=== PATIENT | female | born 1960 | race Caucasian/White ===

== ENCOUNTER 2020-03-16 13:46 | Outpatient (CLI) | payer OTHER, SELFPAY ==
--- NOTE | ~2020-03-16 | CT_ITS ---
EXAMINATION: CT soft tissue neck w con DATE: 03/16/2020 15:01 INDICATION: Dysphagia. TECHNIQUE: Computed tomography (CT) of the neck was performed with 75 mL Omnipaque-350 intravenous co ntrast. Automated exposure control and iterative reconstruction technique were employed. The dose-luis alberto gth product was 570.68 mGy-cm. COMPARISON: None FINDINGS: There is mild emphysema. There are likely changes of ocular lens replacement surgeries. The re is a 4.3 cm nodule in right thyroid lobe with leftward deviation of the trachea. There is no plaqu e in the proximal internal carotid arteries. There are no pathologically enlarged lymph nodes. There is mild mucosal thickening in the ethmoid sin uses. The mastoid air cells are normal. There is mild cervical spondylosis. IMPRESSION: 1. Thyroid nodule. Ultrasound-guided fine-needle aspiration is recommended. Reviewed, dictated and finalized at location A.
[2020-03-16 14:48] LABS: Estimated Glomerular Filt Rate > 60
== END 2020-03-16 13:47 | disposition home or self-care (01) ==
PROVIDERS: PCP Family Medicine; Visit Provider Family Medicine
DX: E01.0 Iodine-deficiency related diffuse (endemic) goiter (principal); R13.10 Dysphagia, unspecified; R20.0 Anesthesia of skin
CPT/HCPCS: 36415; 70491; Q9967

== ENCOUNTER → 2020-07-16 10:26 | Outpatient (CLI) | payer OTHER, SELFPAY ==
--- NOTE | ~2020-07-16 | MM_ITS ---
EXAMINATION: MM screening [facility] w [place] HISTORY: Screening mammogram TECHNIQUE: Craniocaudal and mediolateral oblique 3-D tomosynthesis images were obtained and synthetic 2-D images were generated. CAD analysis was submitted and interpreted. COMPARISON: 06/27/2019 bilateral digital screening mammogram BREAST PARENCHYMAL COMPOSITION: FINDINGS: There is a circumscribed benign-appearing stable opacity in the outer mid right breast, lik loyd a benign intramammary lymph node. There is no evidence of suspicious mass, calcification, or arch itectural distortion to suggest malignancy in either breast. There has been no suspicious interval ch faraz. IMPRESSION: 1. No mammographic evidence of malignancy. 2. Recommend routine screening mammography in one year. BI-RADS Category 2: Benign finding(s). Reviewed, dictated and finalized at location A.
== END ==
PROVIDERS: PCP Nurse Practitioner Family; Visit Provider Nurse Practitioner Family
DX: Z12.31 Encounter for screening mammogram for malignant neoplasm of breast (principal)
CPT/HCPCS: 77063; 77067

== ENCOUNTER → 2020-09-28 13:03 | Outpatient (CLI) | payer OTHER, SELFPAY ==
--- NOTE | ~2020-09-28 | XR_ITS ---
EXAMINATION:XR_[id number]_CR, XR thoracic spine 2V DATE: 09/28/2020 13:38 INDICATION: Cervicalgia and dorsalgia with numbness and tingling in the fingers of the left hand radi ographs the left arm to the axilla. TECHNIQUE: 1. Standing AP, lateral, lateral swimmers and odontoid views of the cervical spine are provided. 2. Standing AP and lateral views of the thoracic spine were obtained. COMPARISON: None FINDINGS: Cervical spine: Alignment is normal. Odontoid is intact. Normal atlantoaxial interval. Vertebral body heights are no rmal. Mild disc height loss at C4-C5, C5-6 and C6-C7. Prevertebral soft tissues are normal. Thoracic spine: S-shaped scoliosis of the thoracic spine with 12 degrees levoscoliosis measured between C7 and T5 and 12 degrees dextro scoliosis between T5 and T9. Vertebral body heights are normal. Moderate disc heig ht loss at T8-T9 and mild disc height loss at the remaining levels from T5-T6 through T11-T12. Visual ized lungs are clear. Cardiomediastinal silhouette is normal. IMPRESSION: 1. Mild S-shaped thoracic scoliosis. 2. Mild cervical and thoracic spondylosis. Reviewed, dictated and finalized at location A. ARCH AND DEVELOPMENT TECHNICIAN IMPRESSION: 1. Mild S-shaped thoracic scoliosis. 2. Mild cervical and thoracic spondylosis.
== END ==
PROVIDERS: Visit Provider Nurse Practitioner Family
DX: M47.892 Other spondylosis, cervical region (principal); M47.894 Other spondylosis, thoracic region; M41.9 Scoliosis, unspecified
CPT/HCPCS: 72040; 72070

== ENCOUNTER 2021-03-07 13:52 | Outpatient (CLI) | payer OTHER, SELFPAY ==
[2021-03-07 14:45] LABS: Alanine Aminotransferase 26 U/L (4-35); Aspartate Amino Transferase 26 U/L (14-36)
== END 2021-03-07 13:53 | disposition home or self-care (01) ==
PROVIDERS: PCP Family Medicine; Visit Provider Podiatrist Foot & Ankle Surgery
DX: B35.1 Tinea unguium (principal)
CPT/HCPCS: 36415; 84450; 84460

== ENCOUNTER → 2023-08-29 10:54 | Outpatient (CLI) | payer OTHER, SELFPAY ==
--- NOTE | ~2023-08-29 | DEXA_ITS ---
Bone Density Report Name: VICTOR M SHEPARD Age: 62 Sex: Female Ethnicity: White Date of : 1960 Indication: postmenopausal; screening for osteoporosis; Referring Provider: Nirmala Moser Study: Bone densitometry was performed. Exam Date: August 29, 2023 Accession number: [id number] Bone Density: Region BMD T-score Z-score Classification AP Spine (L1-L4) 1.190 1.3 2.9 Normal Femoral Neck (Left) 0.940 0.8 2.2 Normal Total Hip (Left) 1.093 1.2 2.3 Normal Femoral Neck (Right) 0.964 1.0 2.4 Normal Total Hip (Right) 1.046 0.9 2.0 Normal Total Hip Mean 1.070 1.1 2.2 Normal World Health Organization criteria for BMD impression classify patients as: Normal (T-score at or above -1.0), Osteopenia (T-score between -1.0 and -2.5), or Osteoporosis (T-score at or below -2.5). 10-year Fracture Risk: FRAX not reported because: All T-scores for Spine Total, Hip Total, Femoral Neck at or above -1.0 Clinical Information Provided by Patient: Has used the following medications: Vitamin D, Calcium Patient maximum height was 65.3 Menopause Age: 52 No regular weight bearing exercise Drinks caffeinated beverages Onset of menses at age 11 Number of children 2 Impression: The patient has normal bone mass. Discussion: LOW RISK OF FRACTURE; BONE DENSITY IS WELL ABOVE THE MINIMUM DESIRABLE LEVEL AND ABOVE AVERAGE FOR AGE AND SEX AT ALL SKELETAL SITES TESTED. This person's bone density is above expected limits for age and sex. This is rarely clinically significant, but should be pursued if there are significant musculoskeletal complaints. The patient should follow a healthful lifestyle (good nutrition with adequate calcium and vitamin D, and appropriate weight-bearing exercise). Follow-Up: Consider repeating this study in 5 years or sooner if there is some new clinical indication. Reported by: ANGELIQUE on 08/29/2023 11:07:00 AM. Reviewed, dictated and finalized at location AP[facility]
== END ==
PROVIDERS: PCP Nurse Practitioner Family; Visit Provider Nurse Practitioner Family
DX: Z78.0 Asymptomatic menopausal state (principal)
CPT/HCPCS: 77080